=== PATIENT | female | born 1980 | race Caucasian/White ===

== ENCOUNTER 2018-09-26 06:24 | Day surgery (SDC) | payer OTHER ==
[~2018-09-26] VITALS: Ht 162.6 cm; Wt 57.6 kg
[2018-09-26 06:48] VITALS: BP 140/78
[2018-09-26 10:48] VITALS: BP 111/63
== END 2018-09-26 09:45 | disposition home or self-care (01) ==
LOC: DS 06:24 → OR 07:30 → DS 09:45
PROVIDERS: Obstetrics & Gynecology
PROC: 10D17ZZ Extraction of Products of Conception, Retained, Via Natural or Artificial Opening (ICD-10-PCS; principal; 2018-09-26 07:30)
DX: O02.1 Missed abortion (principal)
CPT/HCPCS: J3010